=== PATIENT | female | born 1985 | race Caucasian/White ===

== ENCOUNTER 2020-09-02 08:29 | Outpatient (REF) | payer OTHER, SELFPAY | END 2020-09-02 08:30 | disposition home or self-care (01) | LOC: HO.LAB 08:29 | PROVIDERS: Visit Provider Internal Medicine | DX: Z20.822 Contact with and (suspected) exposure to COVID-19 (principal) | CPT/HCPCS: 36415; C9803; U0003; U0005 ==

== ENCOUNTER 2021-08-18 09:54 | Emergency (ER) | payer OTHER, SELFPAY ==
--- NOTE | ~2021-08-18 | XR_ITS ---
EXAMINATION: XR KNEE, LEFT CLINICAL INFORMATION: Pain and swelling COMPARISON: None TECHNIQUE: Four views of the left knee. FINDINGS: Bone alignment is normal. No fracture or dislocation is seen. The joint spaces are normal. There is a large joint effusion. XR/XR knee LT 4V IMPRESSION: Large joint effusion .
[2021-08-18 10:17] VITALS: BP 135/80; PULSE 70; RESP 18; TEMP 36.1; O2SAT 100; BMI 25.2
--- NOTE | 2021-08-18 10:53 | ED.GENADULT ---
HPI - General Adult General Chief complaint: General Medical Stated complaint: back pain Time Seen by Provider: 08/18/21 10:53 Related Data Allergies Allergy/AdvReac Type Severity Reaction Status Date / Time No Known Allergies Allergy Verified 08/18/21 10:23 [facility] Past Medical History Medical History (Updated 08/18/21 @ 10:21 by Krupa Mendez) Chronic back pain Social History Social History Advance Directives: No Advance Directives Information Provided: No Patient : No Physical Exam Vital Signs: Vital Signs: Last Vital Signs Temp 96.9 F 08/18/21 10:17 Pulse 70 08/18/21 10:17 Resp 18 08/18/21 10:17 BP 135/80 08/18/21 10:17 Pulse Ox 100 08/18/21 10:17 BMI result Body Mass Index 25.2
--- NOTE | 2021-08-18 10:55 | ED_ITS ---
HPI - Back Pain/Injury General Chief Complaint: Back Pain/Injury Stated Complaint: back pain Time Seen by Provider: 08/18/21 10:53 Source: patient Mode of arrival: ambulatory Limitations: no limitations History of Present Illness HPI Narrative: Back pain x 6mths. No acute injury. Seen 3 mths ago at [facility] [place] and had CT lower back, per pt. showed bulging disc. Pt had left sciatica to thigh that has now resolved. Pain is now across lower back bilaterally. Denies any other numbness or tinglin of lower extremities. No urinary or bowel symptoms Pt also complaining of left knee pain and edema x 3mths after injury to left knee during stretching/workout. Edema is transient, worse after activity. 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 Pt has no pcp, but has an appt with one in 3 mths.. MD elicited complaint: back pain Pertinent past history: prior back pain and back surgery (none) Onset (ago): month(s) (6) Timing: intermittent Severity: moderate Similar Symptoms Previously: Yes Quality: dull and aching Location: lumbar spine, right lower back and left lower back Exacerbating factors: movement and lifting Relieving factors: other (rest) Context: while lifting, turning/twisting and bending Associated symptoms: denies other symptoms Treatments prior to arrival: acetaminophen Work related injury: No Related Data Previous Rx's Medication Instructions Recorded cyclobenzaprine 10 mg tablet 10 mg PO BEDTIME PRN #10 tab 08/18/21 ibuprofen 400 mg tablet 400 mg PO Q8H PRN #30 tab 08/18/21 Allergies Allergy/AdvReac Type Severity Reaction Status Date / Time No Known Allergies Allergy Verified 08/18/21 10:23 Review of Systems Review of Systems: Constitutional : No Weight loss, No Fever, No Chills, No Night Sweats, No Fatigue, No Malaise ENT/Mouth : No Hearing loss, No Ear Pain, No Nasal Congestion, No Sinus Pain, No Hoarseness, No sore throat, No Rhinorrhea, No Swallowing Difficulty Eyes: No Eye Pain, No Swelling, No Redness, No Foreign Body, No Discharge, No Vision Changes Cardiovascular : No Chest Pain, No SOB, No Dyspnea on Exertion, No Orthopnea, No Edema, No Palpitations Respiratory : No Cough, No Sputum, No Wheezing, No Smoke Exposure, No Dyspnea Gastrointestinal : No Nausea, No Vomiting, No Diarrhea, No Constipation, No abdominal Pain, No Hematochezia, No Melena Genitourinary : no irregular bleeding, No Dysuria, No Urinary Frequency, No Hematuria, No Urinary Incontinence, No Urgency, No Flank Pain, No Urinary Flow Changes, No Hesitancy Musculoskeletal : + low back pain, no sciaticaLeft knee pain, No Myalgias, + left knee Joint Swelling Skin : No Skin Lesions, No rash Neuro : No Weakness, No Numbness, No Paresthesias, No Loss of Consciousness, No Dizziness, No Headache Psych : No Anxiety/Panic, No Depression, No SI/HI/AH/VH, No Social Issues, Heme/Lymph: No Bruising, No Bleeding,No Lymphadenopathy Endocrine : No Polyuria, No Polydipsia, No Temperature Intolerance Yes all other systems are reviewed and are negative [facility] Past Medical History Attestation statement: The following information was validated with the patient. Medical History (Updated 08/18/21 @ 11:53 by YAQUELIN Moya) Chronic back pain Social History Social History Advance Directives: No Advance Directives Information Provided: No Patient : No Physical Exam Vital Signs: Vital Signs: Last Vital Signs Temp 96.9 F 08/18/21 10:17 Pulse 70 08/18/21 10:17 Resp 18 08/18/21 10:17 BP 135/80 08/18/21 10:17 Pulse Ox 100 08/18/21 10:17 BMI result Body Mass Index 25.2 vital signs have been reviewed as normal and appeared to be correct.? Blood pressure normal.? Heart rate normal.? Respiration rate normal.? Temperature normal.? Oxygen saturation normal. ? Appearance: Alert. Oriented X3. No acute distress.? ? Head: Normal external exam. Normocephalic. Atraumatic.? Neck: Normal inspection. Neck supple. FROM. No adenopathy. Thyroid Normal. No meningeal signs. No neck mass noted. CVS: Normal heart rate and rhythm. Heart sound normal. No murmurs noted. Pulses normal throughout.? Respiratory: No respiratory distress. Painless inspiration. Back:? No CVA tenderness. Full range of motion noted. No obvious deformities, or edema. Mild para-spinal muscular tenderness from lumbar region to coccyx. Full ROM in back and lower extremities. 5/5 strength hip extension/flexion, abduction, adduction. Mild Lumbar pain with hip flexion against resistance. Straight leg raise test postive on right; Straight leg raise test postive on left; Reflexes normal ankle and knee bilaterally; EHL motor strength normal bilaterally.? No rashes/lesion/induration/fluctuance or signs infection noted. Skin: Skin warm and dry.? Normal skin color.? Normal skin turgor. No rashes/lesions/lacerations noted. Extremities: Mild left knee effusion, knee stable, neg ant drawer test..? Te nderness to palpation left lateral knee. no redness, not hot touch, no signs of infection.?Extremities exhibit normal range of motion.? Neuro: Oriented X 3.? No motor deficit.? No sensory deficit.? Reflexes normal.? Patient has a normal steady gait.. Discharge Plan Discharge Clinical Impression: Strain of lumbar region, Edema of knee Patient Disposition: Home, Self-Care Instructions: Low Back Strain (ED), Swollen Knee Joint (ED), Back Pain (ED) Additional Instructions: your knee xray shows an effusion on the left knee. This means that you have swelling of your left knee as we discussed. Try ice 20 minutes at a time and wear brace as discussed. Return if worse. BAck pain: Try stretches for back and medications as discussed. Return if worse. Prescriptions: New ibuprofen 400 mg tablet 400 mg PO Q8H PRN (Reason: pain) Qty: 30 RF: 0 cyclobenzaprine 10 mg tablet 10 mg PO BEDTIME PRN (Reason: muscle spasm) Qty: 10 RF: 0 Referrals: Pedro Luis Sevilla MD [Primary Care Provider] - 2 days
--- NOTE | 2021-08-18 11:57 | ED_ITS ---
HPI - Back Pain/Injury General Chief Complaint: Back Pain/Injury Stated Complaint: back pain Time Seen by Provider: 08/18/21 10:53 Source: patient Limitations: no limitations History of Present Illness HPI Narrative: Pt with back pain x 6mths. Increasing pain x 2 weeks across low back. Initially had left sciatica that is now resolved. Pt denies injury. 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 Denies fever, IV drug use. Pt seen [place] [facility] 3mths ago and had CT of back showing a bulging disc per patient. Pt waiting to see her PCP in 3 mths for referral to specialist. Here today for help with pain until then. Also complaining of left knee pain and swelling x 3mths. started after injury while working out. pain worse along outside of knee and wiht movement. No weakness, no redness, no fever MD elicited complaint: back pain Pertinent past history: prior back pain Onset (ago): month(s) Timing: intermittent Severity: moderate Similar Symptoms Previously: Yes Quality: dull and aching Location: lumbar spine Radiation: none Exacerbating factors: movement and lifting Relieving factors: other (rest) Context: while lifting and turning/twisting Associated symptoms: denies other symptoms Treatments prior to arrival: acetaminophen Related Data Previous Rx's Medication Instructions Recorded cyclobenzaprine 10 mg tablet 10 mg PO BEDTIME PRN #10 tab 08/18/21 ibuprofen 400 mg tablet 400 mg PO Q8H PRN #30 tab 08/18/21 Allergies Allergy/AdvReac Type Severity Reaction Status Date / Time No Known Allergies Allergy Verified 08/18/21 10:23 Review of Systems Review of Systems: Constitutional : No Weight loss, No Fever, No Chills, No Night Sweats, No Fatigue, No Malaise ENT/Mouth : No Hearing loss, No Ear Pain, No Nasal Congestion, No Sinus Pain, No Hoarseness, No sore throat, No Rhinorrhea, No Swallowing Difficulty Eyes: No Eye Pain, No Swelling, No Redness, No Foreign Body, No Discharge, No Vision Changes Cardiovascular : No Chest Pain, No SOB, No Dyspnea on Exertion, No Orthopnea, No Edema, No Palpitations Respiratory : No Cough, No Sputum, No Wheezing, No Smoke Exposure, No Dyspnea Gastrointestinal : No Nausea, No Vomiting, No Diarrhea, No Constipation, No abdominal Pain, No Hematochezia, No Melena Genitourinary : no irregular bleeding, No Dysuria, No Urinary Frequency, No Hematuria, No Urinary Incontinence, No Urgency, No Flank Pain, No Urinary Flow Changes, No Hesitancy Musculoskeletal : low back pain, + left knee joint pain, No Myalgias, + left knee Joint Swelling Skin : No Skin Lesions, No rash Neuro : No Weakness, No Numbness, No Paresthesias, No Loss of Consciousness, No Dizziness, No Headache Psych : No Anxiety/Panic, No Depression, No SI/HI/AH/VH, No Social Issues, Heme/Lymph: No Bruising, No Bleeding,No Lymphadenopathy Endocrine : No Polyuria, No Polydipsia, No Temperature Intolerance Yes all other systems are reviewed and are negative [facility] Past Medical History Attestation statement: The following information was validated with the patient. Medical History (Updated 08/18/21 @ 11:53 by YAQUELIN Moya) Chronic back pain Social History Social History Advance Directives: No Advance Directives Information Provided: No Patient : No Physical Exam Vital Signs: Vital Signs: Last Vital Signs Temp 96.9 F 08/18/21 10:17 Pulse 70 08/18/21 10:17 Resp 18 08/18/21 10:17 BP 135/80 08/18/21 10:17 Pulse Ox 100 08/18/21 10:17 BMI result Body Mass Index 25.2 vital signs have been reviewed as normal and appeared to be correct.? Blood pressure normal.? Heart rate normal.? Respiration rate normal.? Temperature normal.? Oxygen saturation normal. ? Appearance: Alert. Oriented X3. No acute distress.? ? Head: Normal external exam. Normocephalic. Atraumatic.? Neck: Normal inspection. Neck supple. FROM. No adenopathy. Thyroid Normal. No meningeal signs. No neck mass noted. CVS: Normal heart rate and rhythm. Heart sound normal. No murmurs noted. Pulses normal throughout.? Respiratory: No respiratory distress. Back:? No CVA tenderness. Full range of motion noted. No obvious deformities, or edema. Mild para-spinal muscular tenderness from lumbar region to coccyx. Full ROM in back and lower extremities. 5/5 strength hip extension/flexion, abduction, adduction. Mild Lumbar pain with hip flexion against resistance. Straight leg raise test postive at 60degrees on right; Straight leg raise test positive at 60 degrees on left; Reflexes normal ankle and knee bilaterally; EHL motor strength normal bilaterally.? No rashes/lesion/induration/fluctuance or signs infection noted. Skin: Skin warm and dry.? Normal skin color.? Normal skin turgor. No rashes/lesions/lacerations noted. Extremities: left knee mild edema, tenderness over lateral left knee, no redness or other signs of infection, no laxity ?Extremities exhibit normal range of motion.? Neuro: Oriented X 3.? No motor deficit.? No sensory deficit.? Reflexes normal.? Patient has a normal steady gait. Discharge Plan Discharge Clinical Impression: Strain of lumbar region, Edema of knee Patient Disposition: Home, Self-Care Instructions: Low Back Strain (ED), Swollen Knee Joint (ED), Back Pain (ED) Additional Instructions: Try stretches for back as discussed. Wear left knee brace when ambulating and at work. Return if worse. Prescriptions: New ibuprofen 400 mg tablet 400 mg PO Q8H PRN (Reason: pain) Qty: 30 RF: 0 cyclobenzaprine 10 mg tablet 10 mg PO BEDTIME PRN (Reason: muscle spasm) Qty: 10 RF: 0
== END 2021-08-18 12:56 | disposition home or self-care (01) ==
PROVIDERS: Emergency Provider Emergency Medicine Emergency Medical Services; PCP Internal Medicine
DX: S39.012A Strain of muscle, fascia and tendon of lower back, initial encounter (principal); X58.XXXA Exposure to other specified factors, initial encounter; M25.562 Pain in left knee; M25.462 Effusion, left knee; Y93.9 Activity, unspecified; Y92.9 Unspecified place or not applicable; Y99.9 Unspecified external cause status
CPT/HCPCS: 73564; 99283

== ENCOUNTER 2021-12-01 07:22 | Outpatient (REF) | payer OTHER, SELFPAY ==
--- NOTE | ~2021-12-01 | XR_ITS ---
EXAMINATION: XR KNEES AP STANDING, BILATERAL XR KNEE, LEFT CLINICAL INFORMATION: Right knee pain. COMPARISON: Left knee 08/18/2021 TECHNIQUE: AP bilateral standing view of the knees was obtained. A sunrise view of the left knee (1 view). FINDINGS: AP BILATERAL KNEES: There is mild loss of the medial compartment joint space in both knees with mild periarticular spurring in the medial compartment of the left knee. No visible acute fracture, dislocation or lytic process is seen. No abnormal soft tissue swelling is seen. LEFT KNEE: A single patellofemoral view reveals minimal loss of the medial and patellofemoral joint spaces without bony erosive changes. There are no loose bodies. No fracture is seen. XR/XR knee LT 1V IMPRESSION: Mild degenerative changes of the medial compartments both knees and the patellofemoral compartment of the left knee. There is mild periarticular spurring of the medial compartment of the left knee.
--- NOTE | ~2021-12-01 | XR_ITS ---
EXAMINATION: XR KNEES AP STANDING, BILATERAL XR KNEE, LEFT CLINICAL INFORMATION: Right knee pain. COMPARISON: Left knee 08/18/2021 TECHNIQUE: AP bilateral standing view of the knees was obtained. A sunrise view of the left knee (1 view). FINDINGS: AP BILATERAL KNEES: There is mild loss of the medial compartment joint space in both knees with mild periarticular spurring in the medial compartment of the left knee. No visible acute fracture, dislocation or lytic process is seen. No abnormal soft tissue swelling is seen. LEFT KNEE: A single patellofemoral view reveals minimal loss of the medial and patellofemoral joint spaces without bony erosive changes. There are no loose bodies. No fracture is seen. XR/XR knee standing BI IMPRESSION: Mild degenerative changes of the medial compartments both knees and the patellofemoral compartment of the left knee. There is mild periarticular spurring of the medial compartment of the left knee.
== END 2021-12-01 07:23 | disposition home or self-care (01) ==
LOC: HO.HOSX 07:22
PROVIDERS: Visit Provider Physician Assistant
DX: S83.012D Lateral subluxation of left patella, subsequent encounter (principal); M25.561 Pain in right knee
CPT/HCPCS: 73560; 73565; 99202

== ENCOUNTER 2021-12-29 11:02 | Outpatient (REF) | payer OTHER, SELFPAY ==
[2021-12-29 13:42] LABS: MANUAL DIFF FLAG NO
[2021-12-29 13:46] LABS: Basophils Percent Auto 0.2 % (0-2); Eosinophils Absolute Auto 0.2 X10*3/uL (0.0-0.4); Eosinophils Percent Auto 1.6 % (0-4); Hematocrit 41.6 % (37.0-47.0); Hemoglobin 14.2 g/dl (12.0-16.0); Imm Gran Abs Auto 0.02 X10*3/uL (0.00-0.03); Imm Gran Pct Auto 0.2 % (0.0-0.4); Lymphocytes Absolute Auto 2.5 X10*3/uL (1.2-4.9); Mean Corpuscular HGB Conc 34.1 g/dl (31.0-35.0); Mean Corpuscular Hemoglobin 32.2 pg (27.0-33.0); Mean Corpuscular Volume 94.3 fL (80.0-98.0); Mean Platelet Volume 10.8 fL (9.4-12.3); Monocytes Absolute Auto 0.7 X10*3/uL (0.1-1.2); Monocytes Percent Auto 7.4 % (2-11); Neutrophils Absolute Auto 6.1 x10*3/uL (2.0-8.3); Neutrophils Percent Auto 64.6 % (45-73); Platelet Count 254 X10*3/uL (160-400); Red Blood Count 4.41 X10*6/uL (4.20-5.50); Red Cell Distribution Width 12.2 % (11.0-16.0); White Blood Count 9.4 X10*3/uL (4.8-10.8)
[2021-12-29 14:01] LABS: Alanine Aminotransferase 24 U/L (0-31); Albumin Level 4.6 g/dL (3.5-5.0); Alkaline Phosphatase 65 U/L (39-117); Anion Gap 11 (12-20); Aspartate Amino Transferase 19 U/L (5-31); Bilirubin Total 1.1 mg/dL (0.0-1.0); Blood Urea Nitrogen 14 mg/dL (9-16); Calcium 9.6 mg/dL (8.4-10.2); Carbon Dioxide 24 mmol/L (22-29); Chloride 107 mmol/L (96-108); Cholesterol 203 mg/dL; Estimated Glomerular Filt Rate > 60; Glucose Fasting 88 mg/dL (60-99); HDL Cholesterol 52 mg/dL; LDL Cholesterol Calculated 139 mg/dl; Potassium 4.2 mmol/L (3.3-5.1); Sodium 138 mmol/L (135-145); Total Protein 7.5 g/dL (6.5-8.0); Triglycerides 63 mg/dL
[2021-12-29 14:14] LABS: TSH reflex Free T4 0.87 uIU/mL (0.32-4.0)
[2022-01-02 14:56] LABS: Vitamin D 25-OH, D2 <4 ng/mL; Vitamin D 25-OH, D3 26 ng/mL; Vitamin D 25-OH, Total 26 ng/mL (30-100)
== END 2021-12-29 11:03 | disposition home or self-care (01) ==
LOC: HO.HMGCLDS 11:02
PROVIDERS: PCP Internal Medicine; Visit Provider Internal Medicine
DX: M25.562 Pain in left knee (principal); R63.0 Anorexia; M54.16 Radiculopathy, lumbar region; M51.26 Other intervertebral disc displacement, lumbar region; Z76.89 Persons encountering health services in other specified circumstances
CPT/HCPCS: 36415; 80053; 80061; 82306; 84443; 85025

== ENCOUNTER 2022-01-05 13:00 | Outpatient (RCR) | payer OTHER, SELFPAY ==
--- NOTE | 2021-12-29 11:53 | MHC.PT.EP ---
[facility] [place] Office [place] Office [place] Office [address] Michael Hebert [address] [phone] F: [phone] F: [phone] F: [phone] F: [phone] Physical Therapy Plan of Care Date of Evaluation: Date of Surgery: n/a Diagnosis: lateral subluxation of L patella Assessment: Patient is a 36 year old female presenting to PT with complaints of pain in her L knee and also more recently in her R knee. Pt reports onset of pain began April 2021 when performing a weightless squat. She presents today with impairments in pain, ROM, quad strength, and hip strength. 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 Pt expresses [facility] goal of reducing pain, and is motivated to work towards this in PT. Clinical presentation today is most consistent with signs and sx associated with knee pain that is likely myofascial in nature and pt will benefit from skilled PT to address the following problems and impairments noted upon evaluation: pain, ROM, quad strength, and hip strength. These problems limit the patient with the following functional activities: ambulation, ADLs, and stair negotiation. The prescribed treatment plan of care is medically necessary. Co-morbidities of hx of back pain were identified and taken into considerations of plan of care. Pt was educated on HEP, role of PT, prognosis, POC. Frequency and Duration: The patient will be seen 2 x week x 4 weeks Short Term Goals: Pt will demonstrate equal knee ROM of 125 in 2 weeks. Pt will demonstrate improved hip strength by 1/3 MMT for improved lumbopelvic stability in 2 weeks. Pt will demonstrate isometric quad contraction with min to no pain in 2 weeks. Irrigation Service Technician Goals: Pt will demonstrate improved LEFI score by 9 points in 4 weeks for improved functional mobility. Pt will demonstrate ability to negotiate stairs with min to no pain in 4 weeks for return to PLOF. Pt will demonstrate ability to ambulate prolonged distances with min to no pain in 4 weeks for return to PLOF. Treatment Plan: Modalities to reduce pain, spasms and effusion. Manual therapy to restore motion and function. Therapeutic exercise to improve strength and flexibility. Neuromuscular re-education for posture and balance. Therapeutic activities to return to functional activities of daily living. Electronically signed by: Tiara Guallpa, PT, DPT, ATC Please sign and return to therapist. Thank you for your referral.
--- NOTE | 2022-02-06 14:50 | MHC.PT.DC ---
[facility] [place] Office [place] Office [place] Office [address] Michael Hebert [address] [facility] [phone] F: [phone] F: [phone] F: [phone] F: [phone] Physical Therapy Discharge Report Diagnosis: lateral subluxation of L patella Date of Surgery: n/a Date of Evaluation: 12/29/21 Date of Discharge: 02/06/22 Treatments to Date: 2 Cancellations to Date: 2 No Shows to Date: 0 Discharge Status: Recommend MD Follow-up Discharge Summary: Pt has not attended skilled PT in >30 days. Pt status unknown at this time. Electronically signed by: Tiara Guallpa, PT, DPT, ATC Please sign and return to therapist. Thank you for your referral.
== END 2022-02-06 14:50 | disposition home or self-care (01) ==
LOC: HO.PTCHIC 13:00
PROVIDERS: PCP Internal Medicine; Visit Provider Physician Assistant
DX: S83.012A Lateral subluxation of left patella, initial encounter (principal)
CPT/HCPCS: 97110; 97140; 97161

== ENCOUNTER 2022-01-26 14:01 | Outpatient (REF) | payer OTHER, SELFPAY ==
--- NOTE | ~2022-01-26 | MM_ITS ---
EXAMINATION: MM DIAGNOSTIC DIGITAL BREAST TOMOSYNTHESIS, BILATERAL US DIAGNOSTIC ULTRASOUND BREAST, LEFT CLINICAL INFORMATION: 36-year-old with 2 week history palpable mass left breast. No prior breast imaging. No known family history breast cancer. The lifetime risk of breast cancer based on the Tyrer-Cuzick Model is 8%. COMPARISON: None (current study represents initial baseline exam). TECHNIQUE: Digital breast tomosynthesis is performed in both the craniocaudal and mediolateral oblique views along with computer-aided detection (CAD). Synthesized 2D images are generated from the tomosynthesis. Additional spot left MLO view is obtained. Ultrasound left breast is targeted to the central breast interrogated from the medial and lateral sides. Grayscale imaging and color Doppler are performed without and with harmonics. FINDINGS: The breasts are heterogeneously dense, which may obscure small masses (ACR BI-RADS breast composition Category c). There is a 1.3 cm mass with smooth margins and central 3:00 left breast corresponding to the area of palpable concern. The remainder of the breasts show no significant mass or architectural abnormality or abnormal calcifications. There are some fine vascular calcifications. The axilla are unremarkable. The skin contours are smooth. Ultrasound demonstrates simple cyst 5:00 position mid breast measuring 1.4 x 0.8 x 1.3 cm. Margins are smooth and there is increased through-transmission of sound and no associated color flow. No solid mass or architectural abnormality or focal duct ectasia. Results are discussed with the patient at time of visit. MM/MM tomosynthesis diagnostic BI IMPRESSION: -No mammographic evidence of malignancy. -Simple cyst left breast corresponding to palpable concern measuring 1.4 cm. ASSESSMENT: BI-RADS 2: Benign RECOMMENDATION: Routine annual mammography screening, beginning age 40, or earlier as clinical risk factors warrant. This patient's information was entered into a reminder system with a target due date for their next mammogram.
== END 2022-01-26 14:02 | disposition home or self-care (01) ==
LOC: HO.MAMMO 14:01
PROVIDERS: Visit Provider Internal Medicine
DX: N63.21 Unspecified lump in the left breast, upper outer quadrant (principal)
CPT/HCPCS: 76642; 77062; 77066

== ENCOUNTER 2023-08-16 16:01 | Outpatient (REF) | payer OTHER, SELFPAY ==
--- NOTE | ~2023-08-16 | MM_ITS ---
EXAMINATION: MM SCREENING DIGITAL BREAST TOMOSYNTHESIS, BILATERAL CLINICAL INFORMATION: Screening. Asymptomatic. COMPARISON: Mammography: This study is compared with prior exams dating back to 2021. TECHNIQUE: Digital breast tomosynthesis is performed in both the craniocaudal and mediolateral oblique views along with computer-aided detection (CAD). Synthesized 2D images are generated from the tomosynthesis. FINDINGS: The breasts are heterogeneously dense, which may obscure small masses (ACR BI-RADS breast composition Category c). There are no significant masses, abnormal calcifications, or other abnormalities. MM/MM tomosynthesis screening BI IMPRESSION: No mammographic evidence of malignancy. ASSESSMENT: BI-RADS BI-RADS 1 - Negative RECOMMENDATION: Routine annual mammography screening. 1 year F/U This examination should not preclude the clinical evaluation of a suspicious palpable abnormality. This patient's information was entered into a reminder system with a target due date for their next mammogram.
== END 2023-08-16 16:02 | disposition home or self-care (01) ==
LOC: HO.MAMMO 16:01
PROVIDERS: PCP Internal Medicine; Visit Provider Internal Medicine
DX: Z12.31 Encounter for screening mammogram for malignant neoplasm of breast (principal)
CPT/HCPCS: 77063; 77067

== ENCOUNTER → 2023-08-16 16:15 | Outpatient (BNV) | payer OTHER, SELFPAY | PROVIDERS: PCP Internal Medicine; Visit Provider Radiology Diagnostic Radiology | DX: Z12.31 Encounter for screening mammogram for malignant neoplasm of breast (principal) | CPT/HCPCS: 77063; 77067 ==

== ENCOUNTER 2025-07-20 09:02 | Outpatient (AMB) | payer OTHER, SELFPAY ==
--- NOTE | 2025-07-20 09:08 | MHC.OFFVIS ---
Vital Signs 07/20/25 09:09 Height 5 ft 3 in Weight 156 lb BMI 27.6 BP 124/78 Blood Pressure Location Rt brachial Position Sitting Intake Visit Reasons: New patient control consult Allergies No Known Allergies Allergy (Verified 07/20/25 09:10) Medication List - Last Reconciled 07/20/25 by Siri Brown CNM No Known Home Meds HPI HPI New patient control consult: Details: Patient is here because she normally goes to [facility] and is up-to-date on all of her director client services healthcare needs including Pap smears there however she has been on Depo-Provera often on between and after her children for total of about 15 years minus pregnancies and fairly consistently, she has tried lots of other methods including Mirena which was uncomfortable for her and control pills and she had trouble being consistent with them and NuvaRing which fell out and she is very clear that she wants her tubes tied her oldest child is 22 and her youngest is 10 years old and she has a grandchild she does not want anymore children. She is healthy and has no health concerns she is not on any medications she does have a spare prescription of Junel at home and has a couple of packs but she does not want to take it because she was inconsistent with taking it. Her periods have returned somewhat though are not super consistent yet she stopped the Depo-Provera earlier in the year she was recommended to stop because of thinning of her bones she has been on vitamin-D since and there has been an improvement. 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 She said that when she called she did request a tubal ligation consult visit that that is what she wanted and she was appointed with this CN provider. [facility] Medical History Chronic back pain Social History Housing: Apartment Patient Tobacco Use Status: Never used Tobacco e-Cigarette/Vaping Use: Never Used service: No Current occupational status: employed Current occupation: right handed, works in a dental office Cognitive needs: No Hearing needs: No Vision needs: No Female Reproductive History Menstrual Duration of menses: 3-5 days Date of last menstrual period: 07/02/25 control method: none Physical Exam Vital Signs: Last Vital Signs BP 124/78 07/20/25 09:09 BMI result Body Mass Index 27.6 Assessment & Plan Assessment & Plan (1) control counseling: Comment: Is very clear that she wants a tubal ligation.... Code(s): Z30.09 - Encounter for other general counseling and advice on contraception Category: Medical Plan Discussed her history with control and her certainty. She describes her health is in good health she says she is up-to-date on her Pap smears and she had called for this appointment and was given this appointment in March with this provider. Discussed that she has been miss appointed and needs to have a consultation discussion with the director client services who has the ability to do surgery and tubal ligations discussed that he would probably wished to discuss her certainty and her health and the risks and alternatives. And we did discuss all of these issues as well today. Patient is to be reappointed with him and if there are any records that are not available they can be obtained beforehand and sign for today before she leaves. Coding Level of Care Code New Pt Level 3 (27580) Diagnoses control counseling Z30. Time Spent (min) 25 Comment 100% discussing risks alternatives and plan...
[2025-07-20 09:09] VITALS: BP 124/78; BMI 27.6
--- OUTSIDE RECORDS SUMMARY | 2025-07-20 09:38 | XMS_ITS | Encounter Summary ---
Author Organization [facility] Address [address] [place] [address] Care Team Providers Care Executive Administrative Assistant Name Role Phone Jef Silva MD Primary Care Pr ovider Encounter Details Date Type Department Care Team (Late st Contact Info) Description 05/28/2025 Results Follow-Up Adult Medicine [address] [phone] Jef Silva MD [address] [place] [address] Social History Tobacco Use Types Packs/Day Years Used Date Smoking Tobacco: Former Cigarettes 0 Q uit: 01/31/2012 Smokeless Tobacco: Never Comments:Quit smoking 22 yea rs ago; (at age 16) social smoker Alcohol Use Standard Drinks/Week Comments No 0 (1 standard drink = 0.6 oz pur e alcohol) Housing Instability Answer Date Recorde d Are you worried that in the next 2 months you may not have stable housing? No 09/24/2024 Food Access & Nutrition Answer Date Rec orded Do you have access to a vari ety of food including fruits and vegetables? Yes 09/24/2024 Access to Healthcare Answer Date Record ed Within the last 3 months, ho w many times did you visit the emergency department for your medical care? 0 09/24/2024 Health Literacy Answer Date Recorded How often do you need to hav e someone help you when you read instructions, pamphlets, or other written material from your doctor or pharmacy? Never 09/24/2024 Caregiver: How often do you need to have someone help you when you read instructions, pamphlets, or other written material from your doctor or pharmacy? Not on file 09/24/2024 Financial Risk Answer Date Recorded How hard is it for you to pa y for the very basics like food, housing, medical care, and air conditioning / heating? Not very hard 09/24/2024 Transportation Answer Date Recorded Has the lack of transportati on kept you from meetings, work, or from getting things needed for daily living? No Has the lack of transportati on kept you from medical appointments or from getting medications? No 09/24/2024 Social Isolation Answer Date Recorded How often do you feel lonely or isolated from th ose around you? Never 09/24/2024 Food Risk Answer Date Recorded Within the past 12 months we worried whether our food would run out before we got money to buy more. Never true 09/24/2024 Within the past 12 months th e food we bought just didn't last and we didn't have money to get more. Never true 09/24/2024 Dependent Care Answer Date Recorded Do you need help finding or paying for care for your loved ones. For example, childrens club attendant or elderly care for an older adult? No 09/24/2024 Education Answer Date Recorded Do you think completing more education or training, like finishing a GED, going to college, or learning a trade, would be helpful for you? N/A 09/24/2024 Employment and Income Answer Date Recor ded During the last four weeks, have you been actively looking for work? No 09/24/2024 Living Situation Answer Date Recorded What is your living situation? Unrecognized valu e 09/24/2024 Comments No Sex and Gender Information Value Date Recorded Sex Assigned at Not on file Legal Sex Female 6:35 AM EST Gender Identity Not on file Sexual Orientation Not on file documented as of this encounter Plan of Treatment Upcoming Encounters Date Type Department Care Team (Late st Contact Info) Description 10/08/2025 3:00 PM EDT Office Visit Adult Medicine [address] [phone] Jef Silva MD [address] [place], [place] documented as of this encounter Visit Diagnoses Not on filedocumented in this encounter Additional Health Concerns Assessment Noted Time PHQ-9 Depression Total Score: 0 10/03/19 25 1:46 PM EST documented as of this encounter Care Teams Executive Administrative Assistant Relationship Specialty Start Date End Date Jef Silva MD [address] [place] [address] PCP - General 04/15/23 documented as of this encounter
--- OUTSIDE RECORDS SUMMARY | 2025-07-20 09:38 | XMS_ITS | Encounter Summary ---
Author Organization [facility] Address [address] [place] [address] Care Team Providers Care Firer Kiln Name Role Phone Jef Silva MD Primary Care Pr ovider Encounter Details Date Type Department Care Team (Late st Contact Info) Description 07/01/2025 Results Follow-Up Adult Medicine [address] [phone] Jef Silva MD [address] [place] [address] Social History Tobacco Use Types Packs/Day Years [...] care for your loved ones. For example, child care associate or elderly care for an older adult? [...] 3:00 PM EDT Office Visit Adult Medicine [address] [phone] Jef Silva MD [address] [place], [place] documented as of this encounter Visit Diagnoses Not on filedocumented in this encounter Additional Health Concerns Assessment Noted Time PHQ-9 Depression Total Score: 0 10/03/19 25 1:46 PM EST documented as of this encounter Care Teams Firer Kiln Relationship Specialty Start Date End Date Jef Silva MD [address] [place] [address] PCP - General 04/15/23 documented as of this encounter
--- OUTSIDE RECORDS SUMMARY | 2025-07-20 09:38 | XMS_ITS | Clinical Summary ---
Author Organization [address] Address [address] [place], [place] Phone Care Team Providers Care Global Expansion Sales Director Name Role Phone eJf Silva MD Primary Care Pr ovider Allergies No known active allergies Medications omega 6-caw-ldu-fish oil (Fish OiL) 1,200 (144-216) mg capsule Take by mouth. Active norethindrone-e thinyl estradiol (JUNEL FE 08/17) 1 mg-20 mcg (21)/75 mg (7) per tablet Take 1 tablet by mouth 1 (one) time each day. 28 tablet 3 12/11/2024 Active ergocalciferol, vitamin D2, (VITAMIN D2 ORAL) Take 2,400 Units by mouth 1 (one) time each day. Active cholecalciferol (VITAMIN D-3) 50 mcg (2,000 unit) tablet Take 1 tablet (2,000 Units total) by mouth 1 (one) time each day. 90 tablet 3 04/09/2025 04/04/20 26 Active metroNIDAZOLE (METROGEL) 0.75 % (37.5mg/5 gram) vaginal gel Apply to vagina nightly for 5 nights. 70 g 07/12/2025 Active sulfamethoxazol e-trimethoprim (BACTRIM DS,SEPTRA DS) 800-160 mg per tablet Take 1 tablet by mouth 2 (two) times a day for 3 days. 6 tablet 07/12/2025 07/15/20 25 Active Problems Problem Noted Date Diagnosed Date Elevated LDL cholesterol level 10/12/2024 Assessment & Plan (04/09/2025 3:08 PM EDT): Will update labs Continue with dietary mgt Orders: Lipid panel with reflex to direct LDL; Future Vitamin D deficiency 10/12/2024 Assessment & Plan (04/09/2025 3:08 PM EDT): Will switch to vitamin D3 2000U daily Orders: Vitamin D 25 hydroxy; Future Primary osteoarthritis of both knees 10/02/2024 Retrolisthesis 10/02/2024 Chronic pain of both knees 10/01/2024 Assessment & Plan (10/01/2024 8:37 PM EST): Will obtain XRAYs and refer to PT/ORTHO Advised that if symptoms persist after PT we can proceed with MRI Orders: Ambulatory referral to Physical Medicine Rehab; Future Ambulatory referral to Orthopedic; Future Osteoarthritis of lumbar spine with myelopathy 0 10/01/2024 Assessment & Plan (10/01/2024 8:37 PM EST): Advised that her XRAY done in 2022 revealed arthritic changes Offered gabapentin for pain/physiatry for joint injections which she defers for now She will send me a message if she changes her mind Orders: Ambulatory referral to Physical Medicine Rehab; Future Overweight (BMI 25.0-29.9) 10/01/2024 Assessment & Plan (04/09/2025 3:08 PM EDT): She is interested in weight loss treatment. Advised to contact her insurance to see what medications are covered. She would benefit from a GLP-1 agonist especially in light of her dyslipidemia and osteoarthritis. Counseled on the possible side effects of the medication. She has no personal or family history of thyroid cancer. She will send me a Mychart message of what medications if any are covered. 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 I also recommended she consider use of condoms to prevent pH changes related to ejaculate. Encounters Date Type Department Care Team Description 07/12/2025 Results Follow-Up Obstetrics and Gynecology - [address] [phone] Siria Velásquez CNM 07/09/2025 4:00 PM EST Office Visit Obstetrics and Gynecology - [address] [phone] Siria Velásquez CNM Vaginal odor (Primary Dx); Venereal disease screening; Abnormal urine odor; Unprotected sexual intercourse 07/01/2025 2:45 PM EST - 07/01/2025 11:59 PM EST Hospital Encounter Radiology Department - [address] [phone] Abnormal mammogram Discharge Disposition: Home or Self Care 07/01/2025 2:45 PM EST - 07/01/2025 11:59 PM EST Hospital Encounter Radiology Department - [address] [phone] Abnormal mammogram Discharge Disposition: Home or Self Care 07/01/2025 Results Follow-Up Adult Medicine [address] [phone] Jef Silva MD 05/28/2025 Results Follow-Up Adult Medicine [address] [phone] Jef Silva MD 05/22/2025 10:54 AM EDT - 05/22/2025 11:59 PM EDT Hospital Encounter Radiology Department - [address] [phone] Encounter for screening mammogram for malignant neoplasm of breast Discharge Disposition: Home or Self Care 04/20/2025 Telephone Adult [address] [phone] Birgit Merino LPN from Last 3 Months Immunizations Immunization Administration Dates Next Due Influenza trivalent, 0.5mL, preservative free (Fluarix; FluLaval; Fluzone) ages 6mo and older (Afluria) 3 years and older 07/09/2014 Influenza trivalent, MDCK, 0 .5mL, preservative free (Flucelvax) 6mo and older 04/09/2025 Influenza trivalent, with pr eservative (Fluzone; Afluria) 6mo and older 07/09/2014 Tdap Tetanus diptheria acell ular pertussis (Boostrix; Adacel) 7yo and older 04/09/2025,02/10/2015,07/09/2014 Surgical History Surgery Date Site/Laterality Comments OTHER SURGICAL HISTORY 11/01/2017 PROCEDURE: EXTRACTION ERUPTED TOOTH/EXR COLPOSCOPY Medical History Medical History Date Comments History of hand fracture DX:Hist ory of hand fracture; COMMENT: right 2007 Abnormal Pap smear of cervix DX: Abnormal Pap smear of cervix; COMMENT: laser rx 2002; biopsy 09/19 LGSIL Family History Medical History Relation Name Comments Alzheimer's disease Maternal Grandfather COPD Maternal Grandmother Rena Diabetes Maternal Grandmother Rena COPD Kidney disease Maternal Grandmother Rena Asthma Mother Olivia Guevara Fibroids Mother Olivia Guevara Uterine cancer Other mother's aunt Colon cancer Paternal Grandfather Breast cancer Neg Hx Ovarian cancer Neg Hx Relation Name Status Comments Father Alive Maternal Grandfather Alive Maternal Grandmother Rena Mother Olivia Guevara Alive Other Alive Paternal Grandfather Paternal Grandmother Social History Tobacco Use Types Packs/Day Years Used Date Smoking Tobacco: Former Cigarettes 0 Q uit: 01/31/2012 Smokeless Tobacco: Never Tobacco Cessation:Counseling Given: Not Answered Comments:Quit smoking 22 years ago; (at age 16) social smoker Alcohol [...] Record ed Within the last 3 months, enrique lacy many times did you visit the emergency [...] care for your loved ones. For example, children's tutor or elderly care for an older adult? [...] on file Sexual Orientation Not on file Obstetrics History * This document contains information received from the source organization and may not represent a complete record from that organization. Para Term AB IAB SAB Ectopic Multiple Livin g Live Births 6 3 3 3 3 Date Outcome GA Total Labor Labor/2nd/3rd Weight Sex Type Anes PTL Allison A1 A5 Name Clin 2002 Term 42w 0d 3515 g (124 oz) M Vag-S pont None Livin g Dezmen Delivery Location:[facility] Comments:induced 2007 Term 40w 0d 3033 g (107 oz) M Vag-S pont None Livin g Jaison Delivery Location:[facility] 2014 Term 41w 2d 3317 g (117 oz) F Vag-S pont Epidur al Livin g 8 9 Jennye Elvia coyle Delivery Location:[facility] Last Filed Vital Signs Vital Sign Reading Time Taken Comments Blood Pressure 112/74 07/09/2025 3:52 PM EST Pulse 89 07/09/2025 3:52 PM EST Temperature 36.4 C (97.5 F) 04/09/2025 2:16 PM EDT Respiratory Rate 12 12/11/2024 3:15 PM EDT Oxygen Saturation 97% 04/09/2025 2:16 PM EDT Inhaled Oxygen Concentration - - Weight 72.1 kg (159 lb) 07/09/2025 3:52 PM EST Height 157.5 cm (5' 2 ) 07/09/2025 3:52 PM EST Body Mass Index 29.08 07/09/2025 3:52 PM EST Plan of Treatment Upcoming Encounters Date Type Department Care Team (Late st Contact Info) Description 10/08/2025 3:00 PM EDT Office Visit Adult Medicine [facility] [address] [place], [place] [phone] Jef Silva MD [address] [place], [place] Health Maintenance Due Date Last Done Comments HPV Vaccines (1 - 3-dose SCD M series) 10/22/2010 Social Influencers of Health Screening 09/24/2025 09/24/2024 Breast Cancer Screening 07/01/2027 07/01/20, 05/22/2025 Cervical Cancer Screening: HPV 08/10/2027 08/10/2022 Cholesterol Screening (Lipid Panel) 04/14/2030 04/14/2025, 10/09/2024, 07/06/2014 DTaP,Tdap,and Td Vaccines (4 - Td or Tdap) 04/09/2035 04/09/2025, 02/10/2015, 07/09/2014 RSV Immunization Adult Patients (1 - 1-dose 75+ series) 10/22/2058 HIV Screening Completed 08/10/2022 Hepatitis C Screening Completed 08/10/2022 Depression Screening Completed 10/02/2024 Influenza Vaccine Discontinued 04/09/2025, 07/09/2014, 07/09/2014 COVID-19 Vaccine Discontinued HIB Vaccines Aged Out No longer eligi ble based on patient's age to complete this topic Hepatitis A Vaccines Aged Out No long er eligible based on patient's age to complete this topic Hepatitis B Vaccines Discontinued IPV Vaccines Aged Out No longer eligi ble based on patient's age to complete this topic MMR Vaccines Aged Out No longer eligi ble based on patient's age to complete this topic Meningococcal ACWY Vaccine Aged Out N o longer eligible based on patient's age to complete this topic Meningococcal B Vaccine Aged Out No l onger eligible based on patient's age to complete this topic Pneumococcal Vaccine: Pediatrics (0 to 5 Years) and At-Risk Patients (6 to 49 Years) Aged Out No longer eligible based on patient's age to complete this topic RSV Immunization Patients Under 20 months Aged Out No longer eligible based on patient's age to complete this topic Varicella Vaccines Aged Out No longer eligible based on patient's age to complete this topic Procedures Procedure Name Priority Date/Time Associated Diagnosis Comments TRICHOMONAS VAGINALIS ANTIGEN Routine 07/09/2025 4:06 PM EST Vaginal odor WET PREP, GENITAL Routine 07/09/2025 4:0 6 PM EST Vaginal odor CHLAMYDIA TRACHOMATIS AND NEISSERIA GONORRHOEAE PCR Routine 07/09/2025 4:06 PM EST Venereal disease screening CULTURE URINE Routine 07/09/2025 4:06 PM EST Abnormal urine odor US BREAST LIMITED RIGHT Routine 07/01/2025 3:05 PM EST Abnormal mammogram MG MAMMO DIGITAL DIAGNOSTIC W CHARBEL RIGHT Routine 07/01/2025 2:59 PM EST Abnormal mammogram MG MAMMO DIGITAL SCREENING W CHARBEL BILAT Routine 05/22/2025 11:15 AM EDT Encounter for screening mammogram for malignant neoplasm of breast LIPID PANEL WITH REFLEX TO DIRECT LDL Routine 04/14/2025 7:45 AM EDT Elevated LDL cholesterol level HM HPV Routine 08/10/2022 HEPATITIS C SCREENING Routine 08/10/2022 HIV SCREENING Routine 08/10/2022 from Last 3 Months or Most Recently Relevant to Health Maintenance Results * Trichomonas vaginalis antigen (07/09/2025 4:06 PM EST) Trichomonas vaginalis Negative Negative 07/09/2025 9:01 PM EST [facility] Swab Vaginal structure / Unknown Non-blood Collection / Unknown 07/09/2025 4:06 PM EST 07/09/2025 4:06 PM EST [facility] MICRO[facility]OLOG[facility] - GENERAL ORDERABLES Final Result Performing Organization Address City/[facility]/ZIP Co de Phone Number [facility] [address] [place] [address], [place] [phone] * Chlamydia trachomatis and Neisseria gonorrhoeae molecular study (07/09/2025 4:06 PM EST) Neisseria gonorrhoeae PCR Negative Negative LAB MOLECULAR DIAGNOSTICS METHOD 07/10/2025 9:34 AM [facility] Chlamydia trachomatis PCR Negative Negative LAB MOLECULAR DIAGNOSTICS METHOD 07/10/2025 9:34 AM [facility] Swab Vaginal structure / Unknown Non-blood Collection / Unknown 07/09/2025 4:06 PM EST 07/09/2025 4:06 PM EST [facility] - GENERAL ORDERABLES Final Result Performing Organization Address [facility]/ZIP Co de Phone Number [facility] [address] [place] [address], [place] [phone] * (ABNORMAL) Wet prep, genital (07/09/2025 4:06 PM EST) Clue Cells, Wet Prep Positive(A) Negative 07/09/2025 8:02 PM EST [facility] Yeast, Wet Prep Negative Negative 07/09/2025 8:02 PM [facility] Trichomonas, Wet Prep Indeterminate Negative 07/09/2025 8:02 PM EST [facility] Comment:Refer to Trichomonas antigen. Swab Vaginal structure / Unknown Non-blood Collection / Unknown 07/09/2025 4:06 PM EST 07/09/2025 4:06 PM EST Siria MOREL LAB MICROBIOLOGY - GENERAL ORDERABLES Final Result [facility] [address] [place] [address], [place] [phone] * (ABNORMAL) Culture urine (07/09/2025 4:06 PM EST) Culture, Urine 10,000-49,000 CFU/mL Escherichia coli(A) JUAN CARLOS 07/11/2025 9:22 AM EST [facility] Urine Urine specimen obtained by clean catch procedure / Unknown Non-blood Collection / Unknown 07/09/2025 4:06 PM EST 07/09/2025 4:06 PM EST Narrative Organism Antibiotic Method Susceptibility Escherichia coli Amoxicillin/Clavulanate JUAN CARLOS <=2 ug/ml: Susceptible Escherichia coli Ampicillin/Sulbactam JUAN CARLOS <=2 ug/ml: Susceptible Escherichia coli Piperacillin/Tazobactam JUAN CARLOS <=4 ug/ml: Susceptible Escherichia coli Cefazolin (Urine) JUAN CARLOS <=1 ug/ml: Susceptible Escherichia coli Cefoxitin JUAN CARLOS <=4 ug/ml: Susceptible Escherichia coli Ceftazidime JUAN CARLOS <=0.5 ug/ml: Susceptible Escherichia coli Ceftriaxone JUAN CARLOS <=0.25 ug/ml: Susceptible Escherichia coli Cefepime JUAN CARLOS <=0.12 ug/ml: Susceptible Escherichia coli Meropenem JUAN CARLOS <=0.25 ug/ml: Susceptible Escherichia coli Amikacin JUAN CARLOS 2 ug/ml: Susceptible Escherichia coli Gentamicin JUAN CARLOS <=1 ug/ml: Susceptible Escherichia coli Ciprofloxacin JUAN CARLOS <=0.06 ug/ml: Susceptible Escherichia coli Levofloxacin JUAN CARLOS <=0.12 ug/ml: Susceptible Escherichia coli Nitrofurantoin JUAN CARLOS <=16 ug/ml: Susceptible Escherichia coli Trimethoprim/Sulfamethoxazole JUAN CARLOS <=20 ug/ml: Susceptible Siria MOREL LAB MICROBIOLOGY - GENERAL ORDERABLES Final Result [facility] [address] [place] [address], * US Breast Limited Right (07/01/2025 3:05 PM EST) Anatomical Region Laterality Modality Breast Right Ultrasound 07/01/2025 3:00 PM EST Impressions 07/01/2025 3:08 PM EST Benign. Findings and recommendations were conveyed to the patient. BI-RADS CATEGORY: 2 - BENIGN RECOMMENDATION: Return to annual mammography. Return to annual mammography. Return to annual mammography. Mammo Location: [facility], [address] [place] [address], [id number], . -------- FINAL REPORT -------- Dictated By: Alysa Plummer Dictated Date: 07/01/2025 15:00 ET Assigned Physician: Alysa Plummer Reviewed and Electronically Signed By: Alysa Plummer Signed Date: 07/01/2025 15:08 ET Workstation ID: [id number] Transcribed By: Self Edit Transcribed Date: 07/01/2025 15:06 ET Narrative 07/01/2025 3:08 PM EST CLINICAL: 39 years old, Female, focal asymmetry anterior retroareolar right breast 05/22/2025. COMPARISON: Mammograms 08/16/2023 and 01/26/2022 . FINDINGS: MAMMOGRAPHY TECHNIQUE: ML, spot compression MLO, and spot compression CC views of the right breast were obtained digitally with 3-D mammogram (digital breast tomosynthesis). Computer-aided detection was utilized in evaluation of this exam (CAD). Focal asymmetry in the retroareolar right breast is a persistent finding. BREAST DENSITY: C - The breasts are heterogeneously dense which may obscure small masses. ULTRASOUND TECHNIQUE: Ultrasound evaluation of the retroareolar right breast was performed. There is a 1.3 x 0.6 x 1.2 cm simple cyst in the retroareolar region of the right breast, corresponding to the mammographic finding. Procedure Note Alysa Plummer MD - 07/01/2025 CLINICAL: 39 years old, Female, focal asymmetry anterior retroareolarright breast 05/22/2025. COMPARISON: Mammograms 08/16/2023 and 01/26/2022 . FINDINGS: MAMMOGRAPHY TECHNIQUE: ML, spot compression MLO, and spot compression CC views of theright breast were obtained digitally with 3-D mammogram (digital breasttomosynthesis). Computer-aided detection was utilized in evaluation ofthis exam (CAD). Focal asymmetry in the retroareolar right breast is a persistentfinding. BREAST DENSITY: C - The breasts are heterogeneously dense which mayobscure small masses. ULTRASOUND TECHNIQUE: Ultrasound evaluation of the retroareolar right breast wasperformed. There is a 1.3 x 0.6 x 1.2 cm simple cyst in the retroareolar region ofthe right breast, corresponding to the mammographic finding. IMPRESSION: Benign. Findings and recommendations were conveyed to the patient. BI-RADS CATEGORY: 2 - BENIGN RECOMMENDATION: Return to annual mammography. Return to annual mammography. Return toannual mammography. Mammo Location: [facility], [address] [place] [address], [id number], . -------- FINAL REPORT -------- Dictated By: Alysa Plummer Dictated Date: 07/01/2025 15:00 ET Assigned Physician: Alysa Plummer Reviewed and Electronically Signed By: Alysa Plummer Signed Date: 07/01/2025 15:08 ET Workstation ID: [id number] Transcribed By: Self Edit Transcribed Date: 07/01/2025 15:06 ET us Jef Silva MD IMMiguel Ángel US PROCEDURE S Final Result * MG Mammo Digital Diagnostic w Charbel Right (07/01/2025 2:59 PM EST) Anatomical Region Laterality Modality Breast Right Mammography 07/01/2025 3:00 PM EST Impressions 07/01/2025 3:08 PM EST Benign. Findings and recommendations were conveyed to the patient. BI-RADS CATEGORY: 2 - BENIGN RECOMMENDATION: Return to annual mammography. Return to annual mammography. Return to annual mammography. Mammo Location: [facility], [address], . -------- FINAL REPORT -------- Dictated By: Alysa Plummer Dictated Date: 07/01/2025 15:00 ET Assigned Physician: Alysa Plummer Reviewed and Electronically Signed By: Alysa Plummer Signed Date: 07/01/2025 15:08 ET Workstation ID: [id number] Transcribed By: Self Edit Transcribed Date: 07/01/2025 15:06 ET Narrative 07/01/2025 3:08 PM EST CLINICAL: 39 years old, Female, focal asymmetry anterior retroareolar right breast 05/22/2025. COMPARISON: Mammograms 08/16/2023 and 01/26/2022 . FINDINGS: MAMMOGRAPHY TECHNIQUE: ML, spot compression MLO, and spot compression CC views of the right breast were obtained digitally with 3-D mammogram (digital breast tomosynthesis). Computer-aided detection was utilized in evaluation of this exam (CAD). Focal asymmetry in the retroareolar right breast is a persistent finding. BREAST DENSITY: C - The breasts are heterogeneously dense which may obscure small masses. ULTRASOUND TECHNIQUE: Ultrasound evaluation of the retroareolar right breast was performed. There is a 1.3 x 0.6 x 1.2 cm simple cyst in the retroareolar region of the right breast, corresponding to the mammographic finding. Procedure Note Alysa Plummer MD - 07/01/2025 CLINICAL: 39 years old, Female, focal asymmetry anterior retroareolarright breast 05/22/2025. COMPARISON: Mammograms 08/16/2023 and 01/26/2022 . FINDINGS: MAMMOGRAPHY TECHNIQUE: ML, spot compression MLO, and spot compression CC views of theright breast were obtained digitally with 3-D mammogram (digital breasttomosynthesis). Computer-aided detection was utilized in evaluation ofthis exam (CAD). Focal asymmetry in the retroareolar right breast is a persistentfinding. BREAST DENSITY: C - The breasts are heterogeneously dense which mayobscure small masses. ULTRASOUND TECHNIQUE: Ultrasound evaluation of the retroareolar right breast wasperformed. There is a 1.3 x 0.6 x 1.2 cm simple cyst in the retroareolar region ofthe right breast, corresponding to the mammographic finding. IMPRESSION: Benign. Findings and recommendations were conveyed to the patient. BI-RADS CATEGORY: 2 - BENIGN RECOMMENDATION: Return to annual mammography. Return to annual mammography. Return toannual mammography. Mammo Location: [facility], [address] [place] [address], [id number], . -------- FINAL REPORT -------- Dictated By: Alysa Plummer Dictated Date: 07/01/2025 15:00 ET Assigned Physician: Alysa Plummer Reviewed and Electronically Signed By: Alysa Plummer Signed Date: 07/01/2025 15:08 ET Workstation ID: [id number] Transcribed By: Self Edit Transcribed Date: 07/01/2025 15:06 ET Jef Silva MD IM BI PROCEDURE S Final Result * (ABNORMAL) MG Mammo Digital Screening w Charbel bilat (05/22/2025 11:15 AM EDT) Anatomical Region Laterality Modality Breast Bilateral Mammography 05/27/2025 5:33 PM EDT Impressions 05/27/2025 5:37 PM EDT Recommend additional imaging on the right. No new suspicious finding on the left. The radiology department will recall the patient. CALLBACK VIEWS: Right 90 ML and spot compression MLO and CC views, all with tomosynthesis; ultrasound. BREAST DENSITY: C - The breasts are heterogeneously dense which may obscure small masses. BI-RADS CATEGORY: 0 - INCOMPLETE - NEED ADDITIONAL IMAGING EVALUATION RECOMMENDATION: Additional right breast imaging recommended. Mammo Location: [facility], [address] [place] [address], [id number], . -------- FINAL REPORT -------- Dictated By: Evelyn Ibarra Dictated Date: 05/27/2025 17:33 ET Assigned Physician: Evelyn Ibarra Reviewed and Electronically Signed By: Evelyn Ibarra Signed Date: 05/27/2025 17:37 ET Workstation ID: [id number] Transcribed By: Self Edit Transcribed Date: 05/27/2025 17:33 ET Narrative 05/27/2025 5:37 PM EDT EXAM: Screening mammogram CLINICAL: 39 years old, Female, routine annual exam. COMPARISON: 08/16/2023 and 01/26/2022 TECHNIQUE: Bilateral MLO and CC views were obtained digitally with digital breast tomosynthesis. Computer-aided detection was utilized in evaluation of this exam (CAD). FINDINGS: Focal asymmetry in the anterior retroareolar right breast. Additional imaging evaluation recommended. Otherwise, no new suspicious mass, architectural distortion, or suspicious calcifications. Procedure Note Evelyn Ibarra MD - 05/27/2025 EXAM: Screening mammogram CLINICAL: 39 years old, Female, routine annual exam. COMPARISON: 08/16/2023 and 01/26/2022 TECHNIQUE: Bilateral MLO and CC views were obtained digitally with digitalbreast tomosynthesis. Computer-aided detection was utilized in evaluationof this exam (CAD). FINDINGS: Focal asymmetry in the anterior retroareolar right breast. Additionalimaging evaluation recommended. Otherwise, no new suspicious mass, architectural distortion, or suspiciouscalcifications. IMPRESSION: Recommend additional imaging on the right. No new suspicious finding onthe left. The radiology department will recall the patient. CALLBACK VIEWS: Right 90 ML and spot compression MLO and CC views, allwith tomosynthesis; ultrasound. BREAST DENSITY: C - The breasts are heterogeneously dense which mayobscure small masses. BI-RADS CATEGORY: 0 - INCOMPLETE - NEED ADDITIONAL IMAGING EVALUATION RECOMMENDATION: Additional right breast imaging recommended. Mammo Location: [facility], [address] [place] [address], [id number], . -------- FINAL REPORT -------- Dictated By: Evelyn Ibarra Dictated Date: 05/27/2025 17:33 ET Assigned Physician: Evelyn Ibarra Reviewed and Electronically Signed By: Evelyn Ibarra Signed Date: 05/27/2025 17:37 ET Workstation ID: [id number] Transcribed By: Self Edit Transcribed Date: 05/27/2025 17:33 ET us Jef Silva MD IMG BI PROCEDURE S Final Result * (ABNORMAL) Lipid panel with reflex to direct LDL (04/14/2025 7:45 AM EDT) [facility] Cholesterol 198 0 - 200 mg/dL LAB CHEMISTRY METHOD 04/14/2025 10:52 AM EDT [facility] Triglycerides 81 0 - 150 mg/dL LAB CHEMISTRY METHOD 04/14/2025 10:52 AM EDT [facility] HDL 52 >=40 mg/dL LAB CHEMISTRY METHOD 04/14/2025 10:52 AM EDT [facility] LDL Calculated 130(H) 0 - 100 mg/dL LAB CHEMISTRY METHOD 04/14/2025 10:52 AM EDT [facility] Comment:Estimated LDL Calcul ated using equation: Total cholesterol - HDL cholesterol - (Triglycerides/5) VLDL Cholesterol Dat 16.2 mg/dL LAB CHEMISTRY METHOD 04/14/2025 10:52 AM EDT [facility] Non HDL Chol. (LDL+VLDL) 146(H) <145 mg/dL LAB CHEMISTRY METHOD 04/14/2025 10:52 AM EDT [facility] Chol/HDL Ratio 3.8 0.0 - 4.4 LAB CHEMISTRY METHOD 04/14/2025 10:52 AM EDT [facility] Blood Venous blood specimen / Unknown Venipuncture / Unknown 04/14/2025 7:45 AM EDT 04/14/2025 7:45 AM EDT us Jef Silva MD LAB BLOOD ORDERA BLES Final Result [facility] [address] [place] [address], [place] [phone] * Cervical Cancer Screening: HPV (08/10/2022) [facility] Cervical Cancer Screening: HPV Negative, Abstracted Historical Provider HEALTH MAINTENANCE Final Result * HIV Screening (08/10/2022) Pathologist [facility] HIV Screening Abstracted Historical Provider HEALTH MAINTENANCE Final Result * Hepatitis C Screening (08/10/2022) Pathologist [facility] Hepatitis C Screening Abstracted Historical Provider HEALTH MAINTENANCE Final Result from Last 3 Months or Most Recently Relevant to Health Maintenance Insurance [facility] Care Teams Global Expansion Sales Director Relationship Specialty Start Date End Date Jef Silva MD [address] [place] [phone] PCP - General 04/15/23
--- OUTSIDE RECORDS SUMMARY | 2025-07-20 09:38 | XMS_ITS | Encounter Summary ---
Author Organization [facility] Address [address] [place] [address] Care Team Providers Care Air Brake Adjuster Name Role Phone Jef Silva MD Primary Care Pr ovider Encounter Details Date Type Department Care Team (Late st Contact Info) Description 07/12/2025 Results Follow-Up Obstetrics and Gynecology - [address] [phone] Siria Velásquez, [address] [phone] Social History Tobacco Use Types Packs/Day Years [...] for your loved ones. For example, child welfare specialist or elderly care for an older adult? [...] on file documented as of this encounter Ordered Prescriptions Prescription Sig Dispense Quantity Refills Last Filled Start Date End Date metroNIDAZOLE (METROGEL) 0.75 % (37.5mg/5 gram) vaginal gel Apply to vagina nightly for 5 nights. 70 g 07/12/2025 sulfamethoxazole-t rimethoprim (BACTRIM DS,SEPTRA DS) 800-160 mg per tablet Take 1 tablet by mouth 2 (two) times a day for 3 days. 6 tablet 07/12/2025 5 documented in this encounter Plan of Treatment Upcoming Encounters Date Type Department Care Team (Late st Contact Info) Description 10/08/2025 3:00 PM EDT Office Visit Adult Medicine [facility] [address] [place] [address] Jef Silva MD [address] [place] [address] documented as of this encounter Visit Diagnoses Not on filedocumented in this encounter Additional Health Concerns Assessment Noted Time PHQ-9 Depression Total Score: 0 10/03/19 25 1:46 PM EST documented as of this encounter Care Teams Air Brake Adjuster Relationship Specialty Start Date End Date Jef Silva MD [address] [place] [address] PCP - General 04/15/23 documented as of this encounter
== END 2025-07-20 09:47 | disposition home or self-care (01) ==
LOC: HO.HWSM 09:02
PROVIDERS: PCP Internal Medicine; Visit Provider Advanced Practice Midwife
DX: Z30.09 Encounter for other general counseling and advice on contraception (principal)
CPT/HCPCS: 99203

== ENCOUNTER → 2025-07-20 09:02 | Outpatient (BNVA) | payer OTHER, SELFPAY | PROVIDERS: PCP Internal Medicine; Visit Provider Advanced Practice Midwife | DX: Z30.09 Encounter for other general counseling and advice on contraception (principal) | CPT/HCPCS: 99202 ==